=== PATIENT | female | born 1995 | race Caucasian/White ===

== ENCOUNTER 2021-08-04 10:07 | Emergency (ER) | payer OTHER, SELFPAY ==
--- NOTE | ~2021-08-04 | XR_ITS ---
EXAMINATION: XR CHEST CLINICAL INFORMATION: Cough, difficulty breathing COMPARISON: None TECHNIQUE: 2 views of the chest were obtained. FINDINGS: There is no hyperinflation, airspace consolidation, or definite groundglass opacity. The costophrenic sulci are clear. There is no effusion. The heart is normal in size. The hilar and mediastinal contours and visualized bony structures are unremarkable. XR/XR chest 2V IMPRESSION: Unremarkable examination.
[2021-08-04 10:14] VITALS: BP 140/90; PULSE 110; O2SAT 98
[2021-08-04 10:48] VITALS: BP 140/88; PULSE 102; RESP 18; TEMP 36.7; O2SAT 96; BMI 45.7
[2021-08-04 11:02] VITALS: RESP 18; O2SAT 97
[2021-08-04 11:17] LABS: COVID-19 Test Negative (Negative); IDNOW Serial# 9DD0AD1C
--- NOTE | 2021-08-04 12:18 | ED.GENADULT ---
HPI - General Adult General Chief complaint: Dyspnea Stated complaint: COLD X'S WEEKS Time Seen by Provider: 08/04/21 12:17 History of Present Illness HPI narrative: Patient complains of an episode of shortness of breath which came on rapidly at work and was relieved when EMS arrived and gave her a nebulizer albuterol treatment, right now she is not short of breath and feels fine She is also concerned as she thinks she might be allergic to some things at work and also complains that she has had cold symptoms meaning a cough and a runny nose for over a month Related Data Previous Rx's Medication Instructions Recorded albuterol sulfate 90 mcg/actuation 2 puff INHALATION Q4-6H PRN #8.5 g 08/04/21 aerosol inhaler prednisone 20 mg tablet 60 mg PO DAILY 5 Days #15 tab 08/04/21 Allergies Allergy/AdvReac Type Severity Reaction Status Date / Time codeine Allergy Shortness Verified 08/04/21 12:34 of Breath Review of Systems Review of Systems: Positive resolved episode of shortness of breath and wheezing, as well as runny nose and cough for several weeks Negatives no fever no chills no dizziness no weakness no headache no neck pain no sore throat no difficulty breathing or swallowing no chest pain no abdominal pain no nausea vomiting or diarrhea no skin Yes all other systems are reviewed and are negative PMFSH Past Medical History Source: nursing notes reviewed Medical History (Updated 08/04/21 @ 12:34 by ALTAGRACIA Valdes) Anxiety Social History Social History Advance Directives: No Advance Directives Information Provided: No Patient : No Physical Exam Vital Signs: Vital Signs: Last Vital Signs Temp 98.1 F 08/04/21 10:48 Pulse 102 H 08/04/21 10:48 Resp 18 08/04/21 11:02 BP 140/88 H 08/04/21 10:48 Pulse Ox 97 08/04/21 11:02 Body Mass Index 45.7 General appearance is comfortable no acute distress speaking full sentences and breathing normally The sinuses are not tender The neck is supple The chest had scattered faint wheezing bilaterally with good full air entry and no prolonged expiration Heart no murmur Extremities full range of motion x4 There is no calf swelling or tenderness Course Course Course Narrative: Chest x-ray and COVID testing were normal The patient had a very good response to albuterol all with full relief of symptoms, but has no history of asthma She will be treated with an inhaler, prednisone and Zyrtec Medical Decision Making Lab Data Labs: Lab Results 08/04/21 Range/Units 10:56 COVID-19 ([facility]) Negative (Negative) COVID-19 Clin Com See Note Discharge Plan Discharge Clinical Impression: Wheezing Patient Disposition: Home, Self-Care Additional Instructions: You may be developing asthma so we are treating you with an albuterol inhaler and prednisone You may have some underlying allergies so we are also treating with Zyrtec which is an allergy medicine Return to the ER any time for difficulty breathing, any worse condition or concerns Prednisone may in some cases increase anxiety so that worsened her anxiety you can try stopping prednisone Follow with primary doctor Prescriptions: New prednisone 20 mg tablet 60 mg PO DAILY 5 Days Qty: 15 RF: 0 albuterol sulfate 90 mcg/actuation HFA aerosol inhaler 2 puff inhalation Q4-6H PRN (Reason: shortness of breath or wheezing) Qty: 8.5 RF: 0 Stand Alone Forms: Work/School Release
[2021-08-04 12:28] VITALS: BP 147/92; PULSE 99; RESP 19; O2SAT 96
== END 2021-08-04 12:53 | disposition home or self-care (01) ==
PROVIDERS: Emergency Provider Emergency Medicine
DX: R06.2 Wheezing (principal)
CPT/HCPCS: 36415; 71046; 87635; 99283